=== PATIENT | female | born 1985 | race Caucasian/White ===

== ENCOUNTER 2024-10-18 11:27 | Emergency (ER) | payer MEDICAID ==
[~2024-10-18] VITALS: Ht 167.6 cm; Wt 76.1 kg
--- NOTE | 2024-10-18 11:35 | Physician Documentation ---
History of Present Illness Stated Complaint: ABD PAIN OK to notify your PCP?: Yes Source: patient Mode of Arrival: POV Exam Limitations: no limitations HPI 38-year-old female [id number] with chief complaint lower pelvic pain that started 3days ago. Pain is constant. No position of comfort. No relationship to bowels or po intake. She states she is worried about retained products of conception states she was 7weeks but miscarried about 4weeks ago. She went through the miscarriage without any medical care and states that it was heavy bleeding for about a week but then stopped. She had not had any bleeding or pelvic pain for a few weeks until 3days ago when the pelvic pain returned. States small amount of vaginal bleeding described as "spotting" and brown-brasher blood. No pain with urination. No fever, chills, nausea or vomiting. No constipation or diarrhea. Medication Reconciliation Allergies: Coded Allergies: No Known Allergies (Unverified , 10/18/24) Miscellaneous Medications Home Med List (No Home Medications), (Reported) Past Medical History Past Surgical History: no surgical history Alcohol Use: None Drug Use: marijuana Lives In: Home Occupation: employed Review of Systems All Other Systems at this time: Reviewed and Negative Physical Exam Physical Exam GENERAL: Alert, MILD DISTRESS APPEARS UNCOMFORTABLE WITH PELVIC PAIN. HEENT: NCAT, EOMI, PERRL, normal oropharynx, moist oral mucosa. NECK: Supple, trachea midline. CARDIAC: Regular rate and rhythm, no murmurs, rubs, or gallops. RESPIRATORY: Equal breath sounds, clear to auscultation bilaterally, no res piratory distress. GASTROINTESTINAL: DISTENDED BUT SOFT, TTP OVER MID TO LOWER ABDOMEN AND PELVIS. No guarding or rebound. MUSCULOSKELETAL: Normal gait. NEUROLOGICAL: Awake, alert, and oriented x 3. SKIN: Warm/dry, no pallor, no rash. PSYCH: Alert and appropriate. Affect congruent with mood. Speech is clear. Good eye contact. Progress Progress Note Technique: Real-time ultrasound images through the pelvis using a transabdominal transducer. For better evaluation of the ovaries and endometrial stripe, an endovaginal transducer was used. Indication: pelvic pain and bleeding with miscarriage earlier this month Comparison: None Findings: The uterus measures 8.5 cm. The uterus is overall extremely heterogeneous in appearance. Endometrial complex is suboptimally characterized. Right ovary measures 5.4 x 3 x 4.6 cm. Right ovarian cystic lesions measuring 4 cm, 2.7 cm with simple features. Left ovary measures 3.6 x 2.6 x 2.3 cm. Complex appearing left ovarianm / adnexal lesion with peripheral vascularity measuring 1.7 cm. There is adjacent free fluid Moderate to large volume of fluid in the pelvis. There is some echogenic components within this fluid. Impression 1. Moderate to large volume fluid within the pelvis with some echogenic components, could represent hemorrhagic component. Recommend correlation with beta HCG levels to exclude an ectopic 2. Complex appearing left ovarian lesion with peripheral vascularity measuring 1.7 cm. Differential considerations include ectopic , corpus luteal cyst. Again, recommend correlation with beta HCG levels given the degree of free fluid in the pelvis to exclude an ectopic . 3. Right ovarian simple cystic lesions measuring 4 cm, 2.7 cm. 4. Overall heterogeneous appearance of the uterus. Recommend physical fitness trainer consultation to further evaluate given the degree of fluid component/complex exclude ectopic and other etiologies. Results/Orders Reviewed/noted all lab results: Yes Medical Decision Making Differential Dx:Considerations: Include: AAA, -Complete, - Incomplete, -Inevitable, -Missed, -Threatened, Abruptio placentae, Angina/UT, Aortic dissection, Appendicitis, Bowel obstruction, Cholangitis, Cholelithasis, Constipation, Diverticular disease, Esophageal rupture, Esophagitis, Gastritis/PUD, Gastroenteritis, GI hemorrhage, Hernia, Hepatitis, Inflammatory BD, Ischemic bowel, Ovarian cyst/torsion, Pancreatitis, PID, Porphyria, Trauma, intraabdominal, Urinary obstruction, Urinary tract infection, Urolithiasis, Other Additional Comments PELVIC PAIN, POSITIVE TEST, LARGE FREE FLUID IN ABDOMEN, CONCERNING FOR ECTOPIC WILL CALL FOR TRANSFER Departure Time of Disposition: 16:58 Disposition: 30 STILL A PATIENT Impression: Primary Impression: Pelvic pain with positive beta-human chorionic gonadotropin (BhCG) in female Additional Impression: Free fluid in pelvis Condition: Fair Additional Instructions: Technique: Real-time ultrasound images through the pelvis using a transabdominal transducer. For better evaluation of the ovaries and endometrial stripe, an endovaginal transducer was used. Indication: pelvic pain and bleeding with miscarriage earlier this month Comparison: None Findings: The uterus measures 8.5 cm. The uterus is overall extremely heterogeneous in appearance. Endometrial complex is suboptimally characterized. Right ovary measures 5.4 x 3 x 4.6 cm. Right ovarian cystic lesions measuring 4 cm, 2.7 cm with simple features. Left ovary measures 3.6 x 2.6 x 2.3 cm. Complex appearing left ovarianm / adnexal lesion with peripheral vascularity measuring 1.7 cm. There is adjacent free fluid Moderate to large volume of fluid in the pelvis. There is some echogenic components within this fluid. Impression 1. Moderate to large volume fluid within the pelvis with some echogenic components, could represent hemorrhagic component. Recommend correlation with beta HCG levels to exclude an ectopic 2. Complex appearing left ovarian lesion with peripheral vascularity measuring 1.7 cm. Differential considerations include ectopic , corpus luteal cyst. Again, recommend correlation with beta HCG levels given the degree of free fluid in the pelvis to exclude an ectopic . 3. Right ovarian simple cystic lesions measuring 4 cm, 2.7 cm. 4. Overall heterogeneous appearance of the uterus. Recommend physical fitness trainer consultation to further evaluate given the degree of fluid component/complex exclude ectopic and other etiologies. Referrals: NO PRIMARY CARE PROVIDER (PCP) Education Educated: Patient Educated regarding: diagnosis, treatment, need for follow up Additional Comment Medical Screen Exam 38 y/o female with c/o lower abdominal pain described as sharp, dull, cramping x 3days. Miscarriage a month ago. States "I am not sure if I have retained products." States she was having a lot of bleeding when she miscarried a few weeks ago, now she is having some vaginal bleeding described as "brownish and intermittent." PEx: NAD. Ambulating around triage room and to bathroom without distress. A/P: 1. Pelvic pain, acute, recent miscarriage. Will get u/s and hcg level. Vital signs stable. Patient stable to wait for room. The note accurately reflects work and decisions made by me with regards to med. screening exam..Armida KAN 10/18/24 11:34 Signature Scribe Signature: x Attestation: The note accurately reflects work and decisions made by me.Armida KAN 10/18/24 18:45 ARMIDA BOYD Oct 18, 2024 11:35
[2024-10-18 12:03] LABS: BASOPHILS % (AUTO) 0.4 % (0-1); EOSINOPHILS % (AUTO) 0.4 % (0-6); HEMATOCRIT 32.9 % (35.0-45.0); HEMOGLOBIN 11.3 g/dl (12.0-16.0); LYMPHOCYTES # (AUTO) 1.1 X10'3 (1.1-4.8); LYMPHOCYTES % (AUTO) 16.5 % (21-51); MEAN CORPUSCULAR HEMOGLOBIN 32.3 PG (27.0-31.0); MEAN CORPUSCULAR HGB CONC 34.4 g/dL (33.0-36.5); MEAN CORPUSCULAR VOLUME 94.1 FL (78-98); MEAN PLATELET VOLUME 7.7 FL (7.4-10.4); MONOCYTES # (AUTO) 0.4 X10'3 (0-0.9); MONOCYTES % (AUTO) 6.4 % (2-12); NEUTROPHILS # (AUTO) 5.2 X10'3 (1.8-7.7); NEUTROPHILS % (AUTO) 76.3 % (42-75); PLATELET COUNT 202 X10'3 (140-440); WHITE BLOOD COUNT 6.8 X10'3 (4.5-11.0)
[2024-10-18 12:11] LABS: ALANINE AMINOTRANSFERASE 33 U/L (12-78); ALBUMIN 4.1 G/DL (3.4-5.0); ALBUMIN/GLOBULIN RATIO 1.2 (1.1-1.5); ALKALINE PHOSPHATASE 63 IU/L (46-116); ANION GAP 8 (8-16); ASPARTATE AMINO TRANSFERASE 19 U/L (10-37); BILIRUBIN,TOTAL 0.6 MG/DL (0.1-1.0); BLOOD UREA NITROGEN 11 MG/DL (7-18); BUN/CREATININE RATIO 13.9 (10.0-20.0); CALCIUM 8.7 MG/DL (8.5-10.1); CHLORIDE 104 MMOL/L (99-107); CREATININE 0.79 MG/DL (0.40-0.90); GLUCOSE 111 MG/DL (70-104); LIPASE 24 U/L (16-77); SODIUM 140 MMOL/L (135-145); TOTAL CARBON DIOXIDE 28.1 MMOL/L (24-32); TOTAL PROTEIN 7.6 G/DL (6.4-8.2); eCRCL 90 ML/MIN; eGFR 81 ML/MIN
[2024-10-18 12:12] LABS: BILIRUBIN,URINE NEGATIVE (Neg); CLARITY,URINE CLEAR (Clear); COLOR,URINE YELLOW (Yellow); GLUCOSE, URINE NEGATIVE (Neg); KETONES,URINE NEGATIVE (Neg); LEUKOCYTE ESTERASE ,URINE NEGATIVE (Neg); NITRITES, URINE NEGATIVE (Neg); OCCULT BLOOD,URINE SMALL (Neg); PROTEIN,URINE NEGATIVE (Neg); URINE HCG POSITIVE (NEG); UROBILINOGEN,URINE 0.2 E.U/dL (0.2-1.0)
[2024-10-18 12:17] LABS: UA COLLECTION TYPE CLN CATCH MIDSTREAM
[2024-10-18 12:18] LABS: SQUAMOUS EPITHELIAL CELL,UR FEW /LPF (FEW)
[2024-10-18 12:19] LABS: BACTERIA,URINE NONE SEEN /HPF (Neg); WBC,URINE 0-4 /HPF (0-4)
[2024-10-18 15:32] VITALS: TEMP 98.9
[2024-10-18] MEDS ORDERED: NO HOME MEDS (15:47)
[2024-10-18 16:19] LABS: BETA HCG,QUANTITATIVE 171 mIU/ml
[2024-10-18 17:15] VITALS: BP 132/72; PULSE 82; RESP 16; O2SAT 100
--- NOTE | 2024-10-18 17:44 | RADIOLOGY REPORT ---
Technique: Real-time ultrasound images through the pelvis using a transabdominal transducer. For bett er evaluation of the ovaries and endometrial stripe, an endovaginal transducer was used. Indication: pelvic pain and bleeding with miscarriage earlier this month Comparison: None Findings: The uterus measures 8.5 cm. The uterus is overall extremely heterogeneous in appearance. Endometrial complex is suboptimally characterized. Right ovary measures 5.4 x 3 x 4.6 cm. Right ovarian cystic lesions measuring 4 cm, 2.7 cm with simpl e features. Left ovary measures 3.6 x 2.6 x 2.3 cm. Complex appearing left ovarianm / adnexal lesion with periph eral vascularity measuring 1.7 cm. There is adjacent free fluid Moderate to large volume of fluid in the pelvis. There is some echogenic components within this fluid . Impression 1. Moderate to large volume fluid within the pelvis with some echogenic components, could represent h emorrhagic component. Recommend correlation with beta HCG levels to exclude an ectopic 2. Complex appearing left ovarian lesion with peripheral vascularity measuring 1.7 cm. Differential c onsiderations include ectopic , corpus luteal cyst. Again, recommend correlation with beta H CG levels given the degree of free fluid in the pelvis to exclude an ectopic . 3. Right ovarian simple cystic lesions measuring 4 cm, 2.7 cm. 4. Overall heterogeneous appearance of the uterus. Recommend filenet developer consultation to further evaluate given the degree of fluid component/complex exclude ectopic and other etiologies.
== END 2024-10-18 18:45 | disposition hospice, inpatient (51) ==
LOC: ER 11:28
DX: O03.9 Complete or unspecified spontaneous abortion without complication (principal); F12.90 Cannabis use, unspecified, uncomplicated
CPT/HCPCS: 36415; 76830; 76856; 80053; 81001; 81025; 83690; 84702; 85025; 93976; 99284